=== PATIENT | female | born 1970 | race Caucasian/White ===

== ENCOUNTER 2017-07-02 00:09 | Inpatient (IN) ==
[2017-07-02] MEDS ORDERED: SODIUM CHLORIDE 0.9% 1,000 ML IV STA (02:00)
[2017-07-02] MEDS ORDERED: HYDROmorphone 2 MG/1 ML VIAL IV STA (02:00)
[2017-07-02] MEDS ORDERED: ALUM/MAG/SIMETH/LIDO VISC 1:1 30 ML BOTTLE PO STA (02:00)
[2017-07-02] MEDS ORDERED: KETOROLAC 30 MG/1 ML VIAL IV STA (02:00)
[2017-07-02] MEDS ORDERED: PANTOPRAZOLE 40 MG VIAL IV STA (02:00)
[2017-07-02] MEDS ORDERED: ONDANSETRON 4 MG/2 ML VIAL IV STA ×2 (02:00→04:29)
[2017-07-02 02:40] LABS: Basophils % 0.2 % (0.0-0.8); Eosinophils # 0.1 10*3/uL (0.0-0.87); Hematocrit 38.4 VOL% (35.7-47.0); Hemoglobin 12.8 GM/DL (12.0-16.0); Immature Granulocytes % 0.6 %; Immature Granulocytes Absolute 0.06 #; Lymphocytes # 3.5 10*3/uL (1.4-4.0); Lymphocytes % 34.4 % (21.3-54.2); Mean Corpuscular HGB Conc 33.3 GM/DL (32-36); Mean Corpuscular Hemoglobin 30 PG (27-34); Mean Corpuscular Volume 90.4 FL (87-102); Mean Platelet Volume 9.8 FL (9.6-12.0); Monocytes # 1.1 10*3/uL (0.11-0.8); Monocytes % 10.3 % (1.7-12.7); Neutrophils # 5.5 10*3/uL (1.4-7.4); Neutrophils % 53.5 % (38.7-73.9); Platelet Count 226 T/CUMM (130-400); Red Blood Count 4.25 MC/CUMM (3.8-5.5); White Blood Count 10.3 T/CUMM (4-12)
[2017-07-02 02:50] LABS: Apearance,Urine CLEAR (Clear); Bacteria,Urine Occasional /HPF (Few); Bilirubin,Urine Negative (Negative); Blood, Urine Large mg/dL (Negative); Glucose,Urine (UA) Negative (Negative); Ketones,Urine Negative (Negative); Mucus,Urine Occasional /LPF (Occasional); Nitrite,Urine Positive (Negative); Protein,Urine Negative; RBC,Urine 1042 /HPF (0-4); Squamous Epithelial Cell,Urine Occasional /HPF (0-10); Urine Color Amber (Yellow); Urine Specific Gravity 1.016 (1.001-1.035); WBC,Urine 1 /HPF (0-6)
[2017-07-02 03:07] LABS: Alanine Aminotransferase 39 U/L (13-56); Albumin 3.9 G/DL (3.4-5.0); Alkaline Phosphatase 88 U/L (45-117); Amylase 61 U/L (25-115); Aspartate Amino Transferase 29 U/L (0-37); Bilirubin,Total < 0.39 MG/DL (0.2-1.0); Blood Urea Nitrogen 20 MG/DL (7-18); Calcium 8.9 MG/DL (8.5-10.1); Glucose 92 MG/DL (74-106); Osmolality,Calculated 285.1 MOS/KG (273-304); Potassium 3.5 MMOL/L (3.5-5.1); Sodium 142 MMOL/L (136-145); Total Protein 7.1 G/DL (6.4-8.3); Troponin I Only < 0.015 NG/ML (0.00-0.045)
[2017-07-02] MEDS ORDERED: LEVOFLOXACIN INJ 750 MG in PREMIX 1 EACH IV STA (03:16)
[2017-07-02 03:49] LABS: Lactic Acid 1.4 MMOL/L (0.4-2.0)
[2017-07-02] MEDS ORDERED: LEVOFLOXACIN INJ 150 ML IV ONE (04:12)
[2017-07-02] MEDS ORDERED: PROMETHAZINE 25 MG/1 ML VIAL ONE (04:44)
[2017-07-02] MEDS ORDERED: PROMETHAZINE 25 MG/1 ML VIAL IM STA (04:45)
[2017-07-02] MEDS ORDERED: DOCUSATE SODIUM 100 MG CAPSULE PO PRN (06:38)
[2017-07-02] MEDS ORDERED: METOCLOPRAMIDE 10 MG/2 ML VIAL IV STA (06:38)
[2017-07-02] MEDS ORDERED: PROCHLORPERAZINE 10 MG TABLET PO PRN (06:38)
[2017-07-02] MEDS ORDERED: METOCLOPRAMIDE 10 MG/2 ML VIAL IV PRN (06:38)
[2017-07-02] MEDS ORDERED: PROMETHAZINE 25 MG/1 ML VIAL IM PRN (06:38)
[2017-07-02] MEDS: GABAPENTIN 100 MG CAPSULE PO SCH ×2 (08:55→20:45)
[2017-07-02] MEDS: SODIUM CHLORIDE 0.9% 1,000 ML IV SCH ×2 (08:55→16:14)
[2017-07-02] MEDS: CALCIUM (CARBONATE)/VITAMIN D 600 MG-400 UNIT TABLET PO SCH (08:55)
[2017-07-02] MEDS: PANTOPRAZOLE 40 MG TABLET PO SCH (08:55)
[2017-07-02] MEDS ORDERED: cefTRIAXone 1,000 MG in SYRINGE 1 EACH IV SCH (09:00)
[2017-07-02] MEDS: HYDROmorphone 2 MG/1 ML VIAL IV PRN (20:45)
[2017-07-02] MEDS ORDERED: METOPROLOL SUCCINATE XL 25 MG TABLET PO SCH (21:00)
[2017-07-03] MEDS: SODIUM CHLORIDE 0.9% 1,000 ML IV SCH ×3 (00:15→19:17)
[2017-07-03 04:31] LABS: Basophils % 0.2 % (0.0-0.8); Eosinophils # 0.1 10*3/uL (0.0-0.87); Eosinophils % 2.2 % (0.00-10.9); Hematocrit 33.2 VOL% (35.7-47.0); Immature Granulocytes % 0.5 %; Immature Granulocytes Absolute 0.03 #; Lymphocytes # 2.3 10*3/uL (1.4-4.0); Mean Corpuscular HGB Conc 33.1 GM/DL (32-36); Mean Corpuscular Hemoglobin 30 PG (27-34); Mean Corpuscular Volume 90.5 FL (87-102); Mean Platelet Volume 10.2 FL (9.6-12.0); Monocytes # 0.5 10*3/uL (0.11-0.8); Monocytes % 8.4 % (1.7-12.7); Neutrophils # 2.8 10*3/uL (1.4-7.4); Neutrophils % 48.7 % (38.7-73.9); Platelet Count 199 T/CUMM (130-400); Red Blood Count 3.67 MC/CUMM (3.8-5.5); Red Cell Distribution Width 13.2 % (9.3-17.3); White Blood Count 5.8 T/CUMM (4-12)
[2017-07-03 04:56] LABS: Calcium 7.9 MG/DL (8.5-10.1); Osmolality,Calculated 289.6 MOS/KG (273-304); Potassium 3.7 MMOL/L (3.5-5.1)
[2017-07-03] MEDS: CALCIUM (CARBONATE)/VITAMIN D 600 MG-400 UNIT TABLET PO SCH (09:26)
[2017-07-03] MEDS: ERGOCALCIFEROL 50,000 UNIT CAPSULE PO SCH (09:26)
[2017-07-03] MEDS: cefTRIAXone 1,000 MG in SYRINGE 1 EACH IV SCH (09:27)
[2017-07-03] MEDS: PANTOPRAZOLE 40 MG TABLET PO SCH (09:27)
[2017-07-03] MEDS: GABAPENTIN 100 MG CAPSULE PO SCH ×2 (09:27→21:33)
[2017-07-03] MEDS: metroNIDAZOLE INJ 500 MG in PREMIX 1 EACH IV SCH ×2 (14:34→21:33)
[2017-07-03] MEDS ORDERED: GENTAMICIN IV ONE (15:00)
[2017-07-03] MEDS ORDERED: SODIUM CHLORIDE 0.9% IV ONE (15:00)
[2017-07-04] MEDS: SODIUM CHLORIDE 0.9% 1,000 ML IV SCH ×3 (04:02→23:40)
[2017-07-04] MEDS: HYDROmorphone 2 MG/1 ML VIAL IV PRN (04:19)
[2017-07-04] MEDS: metroNIDAZOLE INJ 500 MG in PREMIX 1 EACH IV SCH ×3 (04:19→21:29)
[2017-07-04] MEDS: CALCIUM (CARBONATE)/VITAMIN D 600 MG-400 UNIT TABLET PO SCH (08:48)
[2017-07-04] MEDS: cefTRIAXone 1,000 MG in SYRINGE 1 EACH IV SCH (08:49)
[2017-07-04] MEDS: PANTOPRAZOLE 40 MG TABLET PO SCH (08:49)
[2017-07-04] MEDS: GABAPENTIN 100 MG CAPSULE PO SCH ×2 (08:49→21:28)
[2017-07-04] MEDS: METOCLOPRAMIDE 10 MG TABLET PO SCH ×2 (11:08→17:22)
[2017-07-04] MEDS: POLYETHYLENE GLYCOL POWDER 17 GM PACK PO SCH (11:09)
[2017-07-05] MEDS: SODIUM CHLORIDE 0.9% 1,000 ML IV SCH ×3 (00:04→17:07)
[2017-07-05] MEDS: METOCLOPRAMIDE 10 MG TABLET PO SCH ×5 (01:05→23:42)
[2017-07-05 05:08] LABS: Basophils % 0.2 % (0.0-0.8); Eosinophils # 0.1 10*3/uL (0.0-0.87); Eosinophils % 1.6 % (0.00-10.9); Hemoglobin 11.3 GM/DL (12.0-16.0); Immature Granulocytes % 0.5 %; Immature Granulocytes Absolute 0.02 #; Lymphocytes # 1.7 10*3/uL (1.4-4.0); Lymphocytes % 38.6 % (21.3-54.2); Mean Corpuscular HGB Conc 34.2 GM/DL (32-36); Mean Corpuscular Hemoglobin 30 PG (27-34); Mean Corpuscular Volume 88.5 FL (87-102); Monocytes # 0.4 10*3/uL (0.11-0.8); Monocytes % 9.3 % (1.7-12.7); Neutrophils # 2.2 10*3/uL (1.4-7.4); Neutrophils % 49.8 % (38.7-73.9); Platelet Count 202 T/CUMM (130-400); Red Blood Count 3.73 MC/CUMM (3.8-5.5); Red Cell Distribution Width 13.2 % (9.3-17.3); White Blood Count 4.4 T/CUMM (4-12)
[2017-07-05] MEDS: metroNIDAZOLE INJ 500 MG in PREMIX 1 EACH IV SCH ×3 (05:35→21:57)
[2017-07-05 05:37] LABS: Calcium 8.2 MG/DL (8.5-10.1); Osmolality,Calculated 291.6 MOS/KG (273-304); Potassium 3.6 MMOL/L (3.5-5.1)
[2017-07-05] MEDS: GABAPENTIN 100 MG CAPSULE PO SCH ×2 (08:31→21:57)
[2017-07-05] MEDS: CALCIUM (CARBONATE)/VITAMIN D 600 MG-400 UNIT TABLET PO SCH (08:31)
[2017-07-05] MEDS: POLYETHYLENE GLYCOL POWDER 17 GM PACK PO SCH (08:32)
[2017-07-05] MEDS: cefTRIAXone 1,000 MG in SYRINGE 1 EACH IV SCH (08:32)
[2017-07-05] MEDS: PANTOPRAZOLE 40 MG TABLET PO SCH (08:32)
[2017-07-06] MEDS: SODIUM CHLORIDE 0.9% 1,000 ML IV SCH (01:54)
[2017-07-06] MEDS: metroNIDAZOLE INJ 500 MG in PREMIX 1 EACH IV SCH ×2 (05:29→13:51)
[2017-07-06] MEDS: METOCLOPRAMIDE 10 MG TABLET PO SCH ×2 (05:30→13:51)
[2017-07-06 08:03] LABS: Basophils % 0.6 % (0.0-0.8); Eosinophils # 0.1 10*3/uL (0.0-0.87); Eosinophils % 1.9 % (0.00-10.9); Hematocrit 37.5 VOL% (35.7-47.0); Hemoglobin 12.5 GM/DL (12.0-16.0); Immature Granulocytes % 0.4 %; Immature Granulocytes Absolute 0.02 #; Lymphocytes # 1.4 10*3/uL (1.4-4.0); Lymphocytes % 26.1 % (21.3-54.2); Mean Corpuscular HGB Conc 33.3 GM/DL (32-36); Mean Corpuscular Hemoglobin 30 PG (27-34); Mean Corpuscular Volume 89.5 FL (87-102); Mean Platelet Volume 9.6 FL (9.6-12.0); Monocytes # 0.5 10*3/uL (0.11-0.8); Monocytes % 9.8 % (1.7-12.7); Neutrophils # 3.3 10*3/uL (1.4-7.4); Neutrophils % 61.2 % (38.7-73.9); Platelet Count 208 T/CUMM (130-400); Red Blood Count 4.19 MC/CUMM (3.8-5.5); Red Cell Distribution Width 13.2 % (9.3-17.3); White Blood Count 5.4 T/CUMM (4-12)
[2017-07-06 08:36] LABS: Calcium 8.5 MG/DL (8.5-10.1); Osmolality,Calculated 283.8 MOS/KG (273-304); Potassium 3.2 MMOL/L (3.5-5.1)
[2017-07-06] MEDS: cefTRIAXone 1,000 MG in SYRINGE 1 EACH IV SCH (09:22)
[2017-07-06] MEDS ORDERED: PROPOFOL 200 MG/20 ML VIAL IV ONE (10:00)
[2017-07-06] MEDS ORDERED: LIDOCAINE 100 MG/5 ML SYRINGE ONE (10:00)
[2017-07-06] MEDS: ERGOCALCIFEROL 50,000 UNIT CAPSULE PO SCH (13:50)
[2017-07-06] MEDS: CALCIUM (CARBONATE)/VITAMIN D 600 MG-400 UNIT TABLET PO SCH (13:50)
[2017-07-06] MEDS: GABAPENTIN 100 MG CAPSULE PO SCH (13:51)
[2017-07-06] MEDS: PANTOPRAZOLE 40 MG TABLET PO SCH (13:51)
[2017-07-06] MEDS: POLYETHYLENE GLYCOL POWDER 17 GM PACK PO SCH (13:51)
[2017-07-06] MEDS ORDERED: POTASSIUM CHLORIDE 20 MEQ TABLET PO PRN (15:31)
[2017-07-06] MEDS ORDERED: POTASSIUM CHLORIDE 20 MEQ TABLET PO ONE (15:54)
[2017-07-06 16:48] VITALS: BP 133/106
== END 2017-07-06 18:11 | disposition home or self-care (01) | DRG 392 ==
LOC: N.EDINP 00:09 → N.ED 00:09 → SUATTDRO 04:53 → N.2E 05:58 → SUATTDRO 07-03 15:12
PROVIDERS: ADMIT Internal Medicine; ATTEND Internal Medicine Infectious Disease

== ENCOUNTER 2018-03-18 14:29 | Observation (INO) ==
[2018-03-18 15:12] LABS: Basophils % 0.3 % (0.0-0.8); Eosinophils # 0.1 10*3/uL (0.0-0.87); Eosinophils % 1.9 % (0.00-10.9); Hematocrit 34.9 VOL% (35.7-47.0); Hemoglobin 11.8 GM/DL (12.0-16.0); Immature Granulocytes % 0.6 %; Immature Granulocytes Absolute 0.02 #; Lymphocytes # 1.1 10*3/uL (1.4-4.0); Lymphocytes % 35.2 % (21.3-54.2); Mean Corpuscular HGB Conc 33.8 GM/DL (32-36); Mean Corpuscular Hemoglobin 31 PG (27-34); Mean Corpuscular Volume 90.6 FL (87-102); Mean Platelet Volume 10.2 FL (9.6-12.0); Monocytes # 0.6 10*3/uL (0.11-0.8); Monocytes % 17.4 % (1.7-12.7); Neutrophils # 1.4 10*3/uL (1.4-7.4); Neutrophils % 44.6 % (38.7-73.9); Platelet Count 165 T/CUMM (130-400); Red Blood Count 3.85 MC/CUMM (3.8-5.5); Red Cell Distribution Width 12.6 % (9.3-17.3); White Blood Count 3.2 T/CUMM (4-12)
[2018-03-18 15:19] LABS: Apearance,Urine CLEAR (Clear); Bilirubin,Urine Negative (Negative); Blood, Urine Small mg/dL (Negative); Glucose,Urine (UA) Negative (Negative); Ketones,Urine Negative (Negative); Nitrite,Urine Negative (Negative); Protein,Urine Negative; RBC,Urine 1 /HPF (0-4); Squamous Epithelial Cell,Urine Occasional /HPF (0-10); Urine Color Straw (Yellow); Urine Specific Gravity 1.019 (1.001-1.035); Urine Urobilinogen < 2.0 EU/DL (0.2-1.0); WBC,Urine <1 /HPF (0-6)
[2018-03-18 15:30] LABS: Albumin 3.7 G/DL (3.4-5.0); Bilirubin,Total 0.7 MG/DL (0.2-1.0); Calcium 8.6 MG/DL (8.5-10.1); Osmolality,Calculated 278.3 MOS/KG (273-304); Total Protein 7.3 G/DL (6.4-8.3)
[2018-03-18] MEDS ORDERED: POTASSIUM CHLORIDE 20 MEQ TABLET PO STA (15:59)
[2018-03-18] MEDS ORDERED: ONDANSETRON 4 MG/2 ML VIAL IV STA (16:31)
[2018-03-18] MEDS ORDERED: HYDROmorphone 2 MG/1 ML VIAL IV STA (16:31)
[2018-03-18] MEDS ORDERED: PANTOPRAZOLE 40 MG VIAL IV STA (16:31)
[2018-03-18] MEDS ORDERED: SODIUM CHLORIDE 0.9% 500 ML IV STA (16:31)
[2018-03-18] MEDS ORDERED: ALUM/MAG/SIMETH/LIDO VISC 1:1 30 ML BOTTLE PO STA (16:31)
[2018-03-18 17:02] LABS: Eosinophils 1 % (0-10); Lymphocytes 42 % (20-55); Segmented Neutrophils 40 % (50-85); Total Cells Counted 100
[2018-03-18 17:03] LABS: Platelet Estimate Normal; Polychromasia Slight
[2018-03-18 17:04] LABS: Hypochromasia Slight; Macrocytosis Slight
[2018-03-18] MEDS ORDERED: ONDANSETRON 4 MG/2 ML VIAL IV PRN (20:06)
[2018-03-18] MEDS ORDERED: ACETAMINOPHEN 325 MG TABLET PO PRN (20:06)
[2018-03-18] MEDS ORDERED: METOPROLOL SUCCINATE XL 25 MG TABLET PO SCH (21:00)
[2018-03-18] MEDS: SODIUM CHLORIDE 0.9% 1,000 ML IV SCH (21:08)
[2018-03-18] MEDS: HYDROXYCHLOROQUINE 200 MG TABLET PO SCH (21:39)
[2018-03-18] MEDS: cefOXitin 2,000 MG in SYRINGE 1 EACH IV SCH (21:40)
[2018-03-18] MEDS: PREGABALIN 100 MG CAPSULE PO SCH (21:41)
[2018-03-19] MEDS: cefOXitin 2,000 MG in SYRINGE 1 EACH IV SCH ×3 (03:08→14:46)
[2018-03-19] MEDS: SODIUM CHLORIDE 0.9% 1,000 ML IV SCH (04:55)
[2018-03-19 05:12] LABS: Basophils % 0.4 % (0.0-0.8); Eosinophils # 0.1 10*3/uL (0.0-0.87); Eosinophils % 2.8 % (0.00-10.9); Hematocrit 30.6 VOL% (35.7-47.0); Hemoglobin 10.1 GM/DL (12.0-16.0); Lymphocytes % 40.9 % (21.3-54.2); Mean Corpuscular Hemoglobin 31 PG (27-34); Mean Corpuscular Volume 92.4 FL (87-102); Mean Platelet Volume 10.3 FL (9.6-12.0); Monocytes # 0.5 10*3/uL (0.11-0.8); Monocytes % 17.7 % (1.7-12.7); Neutrophils % 38.2 % (38.7-73.9); Platelet Count 152 T/CUMM (130-400); Red Blood Count 3.31 MC/CUMM (3.8-5.5); Red Cell Distribution Width 12.7 % (9.3-17.3); White Blood Count 2.5 T/CUMM (4-12)
[2018-03-19 05:23] LABS: Bilirubin,Total 1.2 MG/DL (0.2-1.0); Osmolality,Calculated 283.8 MOS/KG (273-304); Potassium 3.6 MMOL/L (3.5-5.1)
[2018-03-19 05:35] LABS: Band Neutrophils 5 % (0-10); Eosinophils 1 % (0-10); Lymphocytes 40 % (20-55); Metamyelocytes 2 %; Platelet Estimate Adequate; Segmented Neutrophils 37 % (50-85); Total Cells Counted 100
[2018-03-19 05:36] LABS: Reactive Lymphocytes Few
[2018-03-19] MEDS ORDERED: cefOXitin 2,000 MG in SYRINGE 1 EACH IV ONE (06:21)
[2018-03-19] MEDS ORDERED: ENOXAPARIN 40 MG/0.4 ML SYRINGE SUBCUT SCH (06:30)
[2018-03-19] MEDS: HYDROmorphone 2 MG/1 ML VIAL IV PRN ×3 (07:52→15:22)
[2018-03-19] MEDS ORDERED: LACTATED RINGERS 1,000 ML IV ONE (08:20)
[2018-03-19] MEDS: PREGABALIN 100 MG CAPSULE PO SCH (08:23)
[2018-03-19] MEDS: HYDROXYCHLOROQUINE 200 MG TABLET PO SCH (08:29)
[2018-03-19] MEDS ORDERED: LIDOCAINE 1%/EPI INJ 20 ML VIAL ONE (08:35)
[2018-03-19] MEDS ORDERED: TISSUE ADHESIVE 1 EACH APPLICATOR TOP ONE (08:35)
[2018-03-19] MEDS ORDERED: BUPIVACAINE 0.25% /EPI 10 ML VIAL ONE (08:35)
[2018-03-19] MEDS ORDERED: CALCIUM (CARBONATE)/VITAMIN D 600 MG-400 UNIT TABLET PO SCH (09:00)
[2018-03-19] MEDS ORDERED: CYANOCOBALAMIN 500 MCG TABLET PO SCH (09:00)
[2018-03-19] MEDS ORDERED: PANTOPRAZOLE 40 MG VIAL IV SCH (09:00)
[2018-03-19] MEDS ORDERED: ASPIRIN EC 81 MG TABLET PO SCH (09:00)
[2018-03-19] MEDS ORDERED: SUGAMMADEX 200 MG/2 ML VIAL IV ONE (10:09)
[2018-03-19] MEDS ORDERED: ONDANSETRON 4 MG/2 ML VIAL ONE ×2 (10:30→10:39)
[2018-03-19] MEDS ORDERED: SEVOFLURANE 1 UNIT/15 MINUTE INH ONE (10:37)
[2018-03-19] MEDS ORDERED: MIDAZOLAM 2 MG/2 ML VIAL ONE (10:37)
[2018-03-19] MEDS ORDERED: fentaNYL 100 MCG/2 ML VIAL ONE (10:39)
[2018-03-19] MEDS ORDERED: PHENYLEPHRINE 1 MG/10 ML SYRINGE IV ONE (10:39)
[2018-03-19] MEDS ORDERED: PROPOFOL 200 MG/20 ML VIAL IV ONE (10:39)
[2018-03-19] MEDS ORDERED: SUCCINYLCHOLINE 200 MG/10 ML VIAL ONE (10:40)
[2018-03-19] MEDS ORDERED: ROCURONIUM 100 MG/10 ML VIAL IV ONE (10:40)
[2018-03-19 16:10] VITALS: BP 120/80
[2018-03-22] MEDS ORDERED: ERGOCALCIFEROL 50,000 UNIT CAPSULE PO SCH (09:00)
[2018-03-22] MEDS ORDERED: FOLIC ACID 1 MG TABLET PO SCH (09:00)
== END 2018-03-19 16:32 | disposition home or self-care (01) ==
LOC: N.ED 14:29 → INTOOBSV 17:55 → N.EDINP 17:55 → N.2E 18:33
PROVIDERS: ADMIT Surgery; ATTEND Surgery
PROC: LAPCHOL (2018-03-19 09:10)